=== PATIENT | female | born 1975 | race Caucasian/White ===

== ENCOUNTER → 2016-11-15 | Outpatient (CLI) | payer MEDICARE ==
--- NOTE | 2016-11-16 07:45 | USB ---
Reason for exam: follow-up at short interval from prior study. History: Family history of breast cancer in maternal aunt at age 40. Benign US breast needle core LT of the left breast, March 26, 2016. Taking hormonal contraceptives for 4 years beginning at age 35. Physical Findings: Nurse Summary: all soft, nodular, movable, right axilla tenderness x 6 weeks per patient (nurse ts). US Breast BILAT Right breast ultrasound includes all four quadrants, the retroareolar region and axilla. Finding demonstrates no cystic or solid lesion seen. Left breast ultrasound includes all four quadrants, the retroareolar region and axilla. Finding demonstrates no cystic or solid lesion seen. These results were verbally communicated with the patient and result sheet given to the patient on 11/15/16. ASSESSMENT: Negative, BI-RAD 1 RECOMMENDATION: Routine screening mammogram of both breasts. (Patient is due now for mammogram per radiologist) Manage patient on a clinical basis.
== END ==
LOC: RADUSWWP 14:19
PROVIDERS: ATTEND Family Medicine
DX: R59.0 Localized enlarged lymph nodes (principal)

== ENCOUNTER → 2018-05-05 | Outpatient (CLI) | payer MEDICARE ==
--- NOTE | 2018-05-05 20:51 | MR ---
EXAMINATION TYPE: MR knee RT wo con DATE OF EXAM: 05/05/2018 COMPARISON: Plain film dated 04/23/2017 HISTORY: Rt knee pain x 6 weeks TECHNIQUE: Multiplanar, multisequence imaging of the right knee is performed without IV contrast. FINDINGS: MEDIAL MENISCUS: There is some increased signal within the anterior horn of the medial meniscus which may extend to the articular surface, coronal image 16 LATERAL MENISCUS: There is increased signal in the posterior horn of the lateral meniscus which is th ought likely to extend to the articular surface, sagittal image 19 CRUCIATE LIGAMENTS: The anterior and posterior cruciate ligaments are intact and unremarkable. COLLATERAL LIGAMENTS: The medial collateral ligament and lateral collateral ligament complex are inta ct and unremarkable. EXTENSOR MECHANISM: Visualized quadriceps and patellar tendons are intact. EFFUSION: Small suprapatellar joint effusion is present. POPLITEAL CYST: No popliteal/gallegos cyst. TRICOMPARTMENT SPACES: Maintained CARTILAGE: Grade 2 to grade III chondromalacia posterior patella BONE MARROW SIGNAL: No focal abnormal marrow signal is appreciated. OTHER: There is some edema in the prepatellar soft tissues along the distribution extending to the i nsertion of the patellar tendon IMPRESSION: Osteoarthritis. Findings compatible with meniscal tears as described. Additional findings above.
== END ==
LOC: RADMRIMAIN 10:07
PROVIDERS: ATTEND Orthopaedic Surgery
DX: M17.11 Unilateral primary osteoarthritis, right knee (principal)

== ENCOUNTER → 2019-06-15 | Outpatient (CLI) | payer MEDICARE ==
--- NOTE | 2019-06-16 06:53 | US ---
EXAMINATION TYPE: US thyroid st tissue head/neck DATE OF EXAM: 06/15/2019 COMPARISON: EXAMINATION TYPE: US thyroid st tissue head/neck DATE OF EXAM: 06/15/2019 COMPARISON: NONE CLINICAL HISTORY: R59.0 Enlarged lymph nodes. Lymph nodes. TECHNIQUE/FINDINGS: Targeted grayscale and color ultrasound were performed of the right neck behind t he ear with left neck also scanned for comparison. Two lymph nodes on the right neck inferior to ear and one on the left posterior neck are seen that ar e both sub centimeter in size. No cortical thickening. Fatty hilum is maintained. IMPRESSION: Morphologically normal nonenlarged lymph nodes seen of the right and left neck.
== END | disposition home or self-care (01) ==
LOC: RADUSWWP 16:48
PROVIDERS: ATTEND Family Medicine
DX: R59.0 Localized enlarged lymph nodes (principal)
CPT/HCPCS: 76536

== ENCOUNTER → 2020-01-28 | Outpatient (CLI) | payer MEDICARE ==
--- NOTE | 2020-02-01 08:42 | MM ---
Reason for exam: screening (asymptomatic). Last mammogram was performed 4 years and 6 months ago. History: Family history of breast cancer in maternal aunt at age 40. Benign US breast needle core LT of the left breast, March 26, 2016. Taking hormonal contraceptives for 10 years beginning at age 35. Physical Findings: A clinical breast exam by your physician is recommended on an annual basis and results should be correlated with mammographic findings. MG 3D Screening Mammo W/Cad Bilateral CC and MLO view(s) were taken. Prior study comparison: August 01, 2015, bilateral MG diagnostic mammo w CAD [facility]. July 25, 2012, CAD bilateral diagnostic mammogram. There are scattered fibroglandular densities. Benign appearing calcifications in the right breast. No significant changes when compared with prior studies. ASSESSMENT: Benign, BI-RAD 2 RECOMMENDATION: Routine screening mammogram of both breasts in 1 year.
== END | disposition home or self-care (01) ==
LOC: RADMAMWWP 14:02
PROVIDERS: ATTEND Family Medicine
DX: Z12.31 Encounter for screening mammogram for malignant neoplasm of breast (principal)
CPT/HCPCS: 77063; 77067

== ENCOUNTER → 2020-04-18 | Outpatient (CLI) | payer MEDICARE ==
--- NOTE | 2020-04-18 12:27 | MR ---
EXAMINATION TYPE: MR knee RT wo con DATE OF EXAM: 04/18/2020 COMPARISON: Prior MRI right knee May 05, 2018 HISTORY: Right knee pain per order. In her pain with locking and swelling for one year after trauma i njury. TECHNIQUE: Multiplanar, multisequence imaging of the right knee is performed without IV contrast. FINDINGS: MEDIAL MENISCUS: Anterior and posterior horns are intact without new tear. Vague signal posterior hor n current study less prominent than prior. LATERAL MENISCUS: Anterior and posterior horns are intact without tear. CRUCIATE LIGAMENTS: The anterior and posterior cruciate ligaments are intact and unremarkable. COLLATERAL LIGAMENTS: The medial collateral ligament and lateral collateral ligament complex are inta ct and unremarkable. EXTENSOR MECHANISM: Visualized quadriceps and patellar tendons are intact. EFFUSION: Small to moderate size suprapatellar joint effusion slightly larger versus prior MRI. POPLITEAL CYST: No popliteal/gallegos cyst. TRICOMPARTMENT SPACES: No significant spurring. Mild tricompartment joint space loss redemonstrated. CARTILAGE: Tricompartmental articular cartilage is preserved. No significant chondromalacia patella. BONE MARROW SIGNAL: Heterogeneity consistent with red marrow reconversion. OTHER: No additional significant abnormality is appreciated. IMPRESSION: 1. No new meniscal or ligamentous tear. Small to moderate size suprapatellar joint effusion slightly larger versus prior. Stable mild tricompartment degenerative changes.
== END | disposition home or self-care (01) ==
LOC: RADMRIMAIN 11:16
PROVIDERS: ATTEND Orthopaedic Surgery
DX: M17.11 Unilateral primary osteoarthritis, right knee (principal)

== ENCOUNTER → 2021-06-30 | Outpatient (CLI) | payer MEDICARE ==
--- NOTE | 2021-06-30 15:49 | XR ---
EXAMINATION TYPE: XR finger LT DATE OF EXAM: 06/30/2021 CLINICAL HISTORY: pain Left second digit. TECHNIQUE: 3 views of the left second digit are submitted. COMPARISON: None FINDINGS: No displaced fracture is seen with certainty. Joint spaces are well-preserved. Correlate for soft tissue injury. IMPRESSION: No acute displaced fracture or dislocation.
== END | disposition home or self-care (01) ==
LOC: RADXRMAIN 15:26
PROVIDERS: ATTEND Nurse Practitioner Family
DX: S69.92XA Unspecified injury of left wrist, hand and finger(s), initial encounter (principal); M79.645 Pain in left finger(s); X58.XXXA Exposure to other specified factors, initial encounter

== ENCOUNTER 2021-10-27 17:21 | Emergency (ER) | payer MEDICARE ==
[2021-10-27 18:01] VITALS: BP 117/66; PULSE 104; RESP 16; TEMP 98.2
[2021-10-27] MEDS ORDERED: CEPHALEXIN 500MG STARTER PACK 4 CAP BTL PO STA (19:23)
--- NOTE | 2021-10-27 19:26 | ED ---
General Adult HPI - General Chief complaint: Extremity Injury, Upper Stated complaint: arm swelling Time Seen by Provider: 10/27/21 19:15 Source: patient, RN notes reviewed, old records reviewed Mode of arrival: ambulatory Limitations: no limitations - History of Present Illness Initial comments: 46-year-old female presenting for evaluation of redness and swelling to the left upper extremity. Patient was stung by a bee or wasp on Saturday which was 2 days prior. She's had increasing erythema and tenderness over the past 48 hours. She has taken Benadryl with minimal improvement. She is concern for cellulitis. She's had no fever. - Related Data Home Medications Medication Instructions Recorded Confirmed ALPRAZolam [Xanax] 0.5 mg PO BID 06/15/14 07/25/14 Amitriptyline HCl [Elavil] 100 mg PO HS 06/15/14 07/25/14 DULoxetine HCL [Cymbalta] 60 mg PO DAILY 06/15/14 07/25/14 Gabapentin [Neurontin] 800 mg PO TID 06/15/14 07/25/14 Levothyroxine Sodium [Synthroid] 175 mcg PO DAILY 06/15/14 07/25/14 Meloxicam [Mobic] 15 mg PO DAILY PRN 06/15/14 07/25/14 Morphine Sulfate [Ms Contin] 30 mg PO Q12HR 06/15/14 07/25/14 Norgestimate-Ethinyl Estradiol 1 tab PO HS 06/15/14 07/25/14 [Trinessa Tablet] hydroCHLOROthiazide 25 mg PO DAILY 06/15/14 07/25/14 traMADol HCl [Ultram] 50 mg PO Q6H PRN 06/15/14 07/25/14 Previous Rx's Medication Instructions Recorded Ondansetron Odt [Zofran Odt] 4 mg PO Q8HR PRN #30 tab 07/25/14 Cephalexin [Keflex] 500 mg PO QID 7 Days #28 cap 10/27/21 Allergies Allergy/AdvReac Type Severity Reaction Status Date / Time No Known Allergies Allergy Verified 10/27/21 17:58 Review of Systems ROS Statement: Those systems with pertinent positive or pertinent negative responses have been documented in the HPI. ROS Other: All systems not noted in ROS Statement are negative. Past Medical History Past Medical History: Osteoarthritis (OA) Additional Past Medical History / Comment(s): RSD left foot, abdominal pain & bloating, feet swelling History of Any Multi-Drug Resistant Organisms: MRSA Date of last positivie culture/infection: 2014 MDRO Source:: left axilla Past Surgical History: Bladder Surgery, Cholecystectomy Additional Past Surgical History / Comment(s): bladder suspension, hypothyroidism, RSD, Past Anesthesia/Blood Transfusion Reactions: No Reported Reaction Past Psychological History: Anxiety, Depression Past Alcohol Use History: None Reported Past Drug Use History: None Reported - Past Family History Mother Family Medical History: No Reported History General Exam Limitations: no limitations General appearance: alert, in no apparent distress Head exam: Present: atraumatic, normocephalic Eye exam: Present: normal appearance, PERRL ENT exam: Present: normal exam Neck exam: Present: normal inspection. Absent: tenderness, meningismus Respiratory exam: Present: normal lung sounds bilaterally. Absent: respiratory distress Cardiovascular Exam: Present: regular rate, normal rhythm GI/Abdominal exam: Present: soft. Absent: distended, tenderness Extremities exam: Present: other (There is a area of central induration about 2 cm rounds with surrounding cellulitis. No drainable abscess.) Neurological exam: Present: alert Course Vital Signs 10/27/21 17:59 Temperature 98.2 F Pulse Rate 104 H Respiratory 16 Rate Blood Pressure 117/66 O2 Sat by Pulse 97 Oximetry Medical Decision Making - Medical Decision Making 46 yo female with a wasp sting to the left upper extremity. There is likely an ALLERGIC component but I am concerned there may be some secondary cellulitis. Patient is instructed to apply ice, take Benadryl at home. And will initiate antibiotics at this time. No visible stinger present. Disposition Clinical Impression: Insect sting, Cellulitis Disposition: HOME SELF-CARE Condition: Good Instructions (If sedation given, give patient instructions): Insect Bite or Sting (ED), Cellulitis (ED) Additional Instructions: Please continue to take Benadryl, take antibiotics as prescribed, return with worsening or changing symptoms. Prescriptions: Cephalexin [Keflex] 500 mg PO QID 7 Days #28 cap Is patient prescribed a controlled substance at d/c from ED?: No Referrals: Billy Kraus DO [Primary Care Provider] - 1-2 days Time of Disposition: 19:25
== END 2021-10-27 19:39 | disposition home or self-care (01) ==
LOC: EC 17:21
DX: T63.461A Toxic effect of venom of wasps, accidental (unintentional), initial encounter (principal); L03.114 Cellulitis of left upper limb
CPT/HCPCS: 99283

== ENCOUNTER → 2022-02-14 | Outpatient (CLI) | payer MEDICARE ==
--- NOTE | 2022-02-14 14:50 | XR ---
EXAMINATION TYPE: XR thoracic spine 2V DATE OF EXAM: 02/14/2022 COMPARISON: None HISTORY: Pain TECHNIQUE: 3 view thoracic spine FINDINGS: There are 12 thoracic type vertebral bodies. Pedicles are intact. Disc heights are preserve d. Vertebral body heights are preserved. IMPRESSION: 1. Normal three-view thoracic spine
--- NOTE | 2022-02-14 14:51 | XR ---
EXAMINATION TYPE: XR lumbar spine 2 or 3V DATE OF EXAM: 02/14/2022 COMPARISON: None HISTORY: Low back pain TECHNIQUE: 3 view lumbar spine FINDINGS: There are 5 lumbar-type vertebral bodies. Pedicles are intact. Disc heights are preserved. Vertebral body heights are preserved. Alignment is normal. MRI can be performed as clinically indicated. IMPRESSION: 1. No acute osseous abnormality lumbar spine
--- NOTE | 2022-02-15 08:42 | MM ---
Reason for Exam: Screening (asymptomatic). Last mammogram was performed 2 year(s) and 0 month(s) ago. Patient History: Menarche at age 14. First Full-Term at age 20. Patient has history of breast feeding. Currently using Hormonal Contraceptives, beginning at age 35 for 10 years. 03/26/2016, Benign Core Biopsy on the left side. Maternal aunt had breast cancer, age 40. Last menstrual period: 01/11/2022 Risk Values: Diana 5 year model risk: 1.0%. NCI Lifetime model risk: 9.2%. Prior Study Comparison: 06/23/2010 Bilateral Diagnostic Mammogram, [facility]. 07/25/2012 Bilateral Diagnostic Mammogram, [facility]. 08/01/2015 Bilateral Diagnostic Mammogram, [facility]. 01/28/2020 Bilateral Screening Mammogram, [facility]. Tissue Density: There are scattered fibroglandular densities. Findings: Analyzed By CAD. There is no suspicious group of microcalcifications or new suspicious mass in either breast. Benign appearing calcifications in the right breast. No significant change from prior exams. Overall Assessment: Benign, BI-RAD 2 Management: Screening Mammogram of both breasts in 1 year. A clinical breast exam by your physician is recommended on an annual basis and results should be correlated with mammographic findings. Electronically signed and approved by: Damir Toth D.O.
== END | disposition home or self-care (01) ==
LOC: RADMAMWWP 13:52
PROVIDERS: ATTEND Family Medicine
DX: Z12.31 Encounter for screening mammogram for malignant neoplasm of breast (principal); M54.6 Pain in thoracic spine; M54.50 Low back pain, unspecified; Z80.3 Family history of malignant neoplasm of breast
CPT/HCPCS: 72070; 72100; 77063; 77067

== ENCOUNTER → 2023-02-01 | Outpatient (CLI) | payer MEDICARE ==
--- NOTE | 2023-02-01 14:19 | NM ---
EXAMINATION TYPE: NM bone 3 phase DATE OF EXAM: 02/01/2023 COMPARISON: NONE CLINICAL INDICATION: Female, 48 years old with history of G90.519; Triple phase bone scintigraphy was performed following the injection of 23.2 mCi Tc 99m MDP. Immedia te images and 4.75 hours post injection images acquired. FINDINGS: There is mild asymmetric angiographic uptake noted involving the midfoot right greater than left and all 3 phases of the study which likely is degenerative in nature. Reflex sympathetic dystro phy difficult to exclude. Correlate clinically. There is no evidence for uptake about the metatarsal phalangeal joints or interphalangeal joints. No significant uptake is seen about the ankles. Degenera tive uptake is seen about the knees and bilateral hips left greater than right. No intense uptake to suggest acute fracture. IMPRESSION: There is mild asymmetric angiographic uptake noted involving the midfoot right greater than left and all 3 phases of the study which likely is degenerative in nature. Reflex sympathetic dystrophy diffic ult to exclude. Correlate clinically.
== END | disposition home or self-care (01) ==
LOC: RADNMMAIN 07:23
PROVIDERS: ATTEND Psychiatry & Neurology Neurology
DX: G90.519 Complex regional pain syndrome I of unspecified upper limb (principal)
CPT/HCPCS: 78315; A9503